=== PATIENT | male | born 2000 | race Caucasian/White ===

== ENCOUNTER 2019-04-26 21:29 | Emergency (ER) | payer BC, OTHER ==
[~2019-04-26] VITALS: Ht 182 cm; Wt 75.0 kg
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
== END 2019-04-26 22:10 | disposition home or self-care (01) ==
LOC: ER 21:30
DX: S01.01XA Laceration without foreign body of scalp, initial encounter (principal); R40.2122 Coma scale, eyes open, to pain, at arrival to emergency department; R40.2252 Coma scale, best verbal response, oriented, at arrival to emergency department; R40.2362 Coma scale, best motor response, obeys commands, at arrival to emergency department; W22.8XXA Striking against or struck by other objects, initial encounter

== ENCOUNTER 2019-05-02 13:05 | Emergency (ER) | payer BC ==
[~2019-05-02] VITALS: Ht 172 cm; Wt 79.0 kg
[2019-05-02 13:22] VITALS: BP 138/88
== END 2019-05-02 13:23 | disposition home or self-care (01) ==
LOC: EDUNIT# 13:05 → ER 13:06
DX: S01.81XD Laceration without foreign body of other part of head, subsequent encounter (principal); X58.XXXD Exposure to other specified factors, subsequent encounter

== ENCOUNTER 2020-04-05 04:17 | Emergency (ER) | payer BC ==
[~2020-04-05] VITALS: Ht 183 cm; Wt 85.3 kg
[2020-04-05] MEDS ORDERED: LISD50CA (04:33)
[2020-04-05] MEDS ORDERED: TETANUS,DIPTH,PERTUSS P/F (BOOSTRIX) 0.5 ML VIAL IM ONE (04:45)
[2020-04-05] MEDS ORDERED: LIDOCAINE/EPI 2% 1:100,00 (XYLOCAINE) 20 ML VIAL ONE (05:25)
[2020-04-05] MEDS ORDERED: LIDOCAINE/EPI 1%-1:100,000 (XYLOCAINE) 20ML INJ STA (05:26)
--- NOTE | 2020-04-05 05:45 | NUR ---
6 SUTURES PLACED TO LIP LACERATION BY ERP.
[2020-04-05] MEDS ORDERED: AUGMENTIN 875 MG TAB (AMOXICILLIN/CLAVULANATE) PO SCH (06:00)
[2020-04-05] MEDS ORDERED: AMOX-358 PO (06:05)
[2020-04-05] MEDS ORDERED: MUPI22OI2 TP (06:05)
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
[2020-04-05 06:08] VITALS: BP 123/59
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
== END 2020-04-05 06:10 | disposition home or self-care (01) ==
LOC: EDUNIT# 04:17 → ER 04:18
DX: S01.511A Laceration without foreign body of lip, initial encounter (principal); S09.8XXA Other specified injuries of head, initial encounter; Z23 Encounter for immunization; Z87.891 Personal history of nicotine dependence; V29.9XXA Motorcycle rider (driver) (passenger) injured in unspecified traffic accident, initial encounter
CPT/HCPCS: 12013; 70450; 70486; 72125; 90715